=== PATIENT | male | born 1980 | race Caucasian/White ===

== ENCOUNTER 2024-09-07 13:29 | Outpatient (REF) | payer OTHER, SELFPAY ==
[2024-09-07 17:34] LABS: MANUAL DIFF FLAG NO
[2024-09-07 17:50] LABS: Basophils Percent Auto 0.8 % (0-2); Eosinophils Absolute Auto 0.2 X10*3/uL (0.0-0.4); Hematocrit 44.6 % (42.0-52.0); Hemoglobin 15.3 g/dl (14.0-18.0); Imm Gran Abs Auto 0.01 X10*3/uL (0.00-0.03); Imm Gran Pct Auto 0.2 % (0.0-0.4); Lymphocytes Absolute Auto 1.9 X10*3/uL (1.2-4.9); Lymphocytes Percent Auto 37.4 % (20-40); Mean Corpuscular HGB Conc 34.3 g/dl (31.0-36.0); Mean Corpuscular Hemoglobin 29.1 pg (27.0-33.0); Mean Platelet Volume 10.5 fL (9.4-12.4); Monocytes Absolute Auto 0.5 X10*3/uL (0.1-1.2); Monocytes Percent Auto 9.1 % (2-11); Neutrophils Absolute Auto 2.4 x10*3/uL (2.0-8.3); Neutrophils Percent Auto 48.5 % (45-73); Platelet Count 251 X10*3/uL (160-400); Red Blood Count 5.25 X10*6/uL (4.60-5.80); Red Cell Distribution Width 13.1 % (11.0-16.0); White Blood Count 4.9 X10*3/uL (4.8-10.8)
[2024-09-07 18:12] LABS: Albumin Level 4.9 g/dL (3.5-5.0); Alkaline Phosphatase 25 U/L (39-117); Anion Gap 12 (12-20); Aspartate Amino Transferase 34 U/L (5-37); Bilirubin Total 0.7 mg/dL (0.0-1.0); Blood Urea Nitrogen 17 mg/dL (9-16); Calcium 9.8 mg/dL (8.4-10.2); Carbon Dioxide 25 mmol/L (22-29); Chloride 108 mmol/L (96-108); Estimated Glomerular Filt Rate > 60; Glucose Random 85 mg/dL (60-115); Potassium 4.6 mmol/L (3.3-5.1); Sodium 140 mmol/L (135-145); Total Protein 7.5 g/dL (6.5-8.0)
[2024-09-07 18:30] LABS: TSH reflex Free T4 1.21 uIU/mL (0.32-4.0)
[2024-09-07 18:35] LABS: Alanine Aminotransferase 51 U/L (0-40)
[2024-09-09 11:04] LABS: LDL Cholesterol Direct 119 mg/dL (<100)
== END 2024-09-07 13:30 | disposition home or self-care (01) ==
LOC: HO.WFDLDS 13:29
PROVIDERS: PCP Internal Medicine; Visit Provider Internal Medicine
DX: F51.01 Primary insomnia (principal); F41.9 Anxiety disorder, unspecified; R09.89 Other specified symptoms and signs involving the circulatory and respiratory systems; Z13.0 Encounter for screening for diseases of the blood and blood-forming organs and certain disorders involving the immune mechanism; Z13.220 Encounter for screening for lipoid disorders; Z13.228 Encounter for screening for other metabolic disorders
CPT/HCPCS: 36415; 80053; 83721; 84443; 85025; 96127

== ENCOUNTER 2024-09-07 13:29 | Outpatient (AMB) | payer OTHER, SELFPAY ==
--- NOTE | 2024-09-07 13:48 | MHC.PC.OV ---
Vital Signs 09/07/24 13:52 Height 5 ft 6.54 in Weight 167 lb 4 oz BMI 26.6 BP 114/88 Blood Pressure Location Rt brachial Position Sitting Respiration 12 Pulse 78 Pulse Source Pulse Oximeter Temp 98.2 F Temp Source Oral Pulse Oximetry (%) 97 Oxygen Delivery Method Room Air Intake Visit Reasons: Est. Care Intake Note: New patient visit Time Study Observer Required: No Allergies sumatriptan Allergy (Unknown, Verified 09/07/24 13:51) Drowsy cold medicine Allergy (Unknown, Uncoded 09/07/24 13:51) Unknown Dental Screening Dental Screen Date: 09/07/24 Did you have a dental visit in the last 12 months?: Yes Did you have a dental problem in the last 6 months where you did not have access to dental care?: No Was dental information given to patient?: Patient has dentist HPI HPI Comments History of Present Illness Details The patient is a 44 year old male with past medical history of migraine, insomnia, family history of melanoma presenting to [facility]. Has not seen by pcp in a few years. Migraines/cluster-light and sound sensitivty, nausea. Lasts for a few hours, most of the time a majority of the day. Happens every 2-3 months. imitrex caused too much drowsiness. Improved by dark room rest. Dad just got diagnosed with melanoma. He has some moles on his back and would like dermatology referral Fiance worried about chronic anxiety. He is not bothered so much by this. 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 He is bothered by poor sleep. It takes him generally a few hours to sleep after which he generally sleeps fairly soundly. ROS see HPI PHYSICAL EXAM: GENERAL: Alert and oriented x 3. NAD EYES: EOMI. Anicteric. HENT: Moist mucous membranes. No scleral icterus. No cervical lymphadenopathy. LUNGS: Clear to auscultation bilaterally. CARDIOVASCULAR: Regular rate and rhythm. No murmur. No JVD. ABDOMEN: Soft, non-tender +bs EXTREMITIES: No edema. Non-tender. SKIN: No rashes or lesions. Warm. NEUROLOGIC: No focal neurological deficits. CN II-XII grossly intact PSYCHIATRIC: Cooperative. Appropriate mood and affect [facility] Social History Housing: House service: No Current occupational status: employed Current occupation: staff software engineer Current occupational exposures/hazards: Yes Cognitive needs: No Hearing needs: No Vision needs: Yes Questionnaire PHQ-9 Over the last 2 weeks, how often have you been bothered by any of the following problems? 1. Little interest or pleasure in doing things: several days 2. Feeling down, depressed, or hopeless: not at all 3. Trouble falling or staying asleep, or sleeping too much: nearly every day 4. Feeling tired or having little energy: several days 5. Poor appetite or overeating: not at all 6. Feeling bad about yourself - or that you are a failure or have let yourself or your family down: not at all 7. Trouble concentrating on things, such as reading the newspaper or watching television: not at all 8. Moving or speaking so slowly that other people could have noticed. Or the opposite - being so fidgety or restless that you have been moving around a lot more than usual: not at all 9. Thoughts that you would be better off or of hurting yourself in some way: not at all Total score: 5 Depression Screening Interpretation: Positive Depression Screening Follow-up: Declines treatment Depression Screening Done: Yes 50616 - PHQ-9 Billing: Yes Source: Developed by Drs. Jd Pearce, Taya Mejia, Kristopher Bob and colleagues, with an educational jay from [employer]. Thrive Questionnaire Date Thrive assessed: 09/01/24 I am a: Patient What is your living situation today?: I have a steady place to live Within the past 12 months, did the food you bought not last and you didn't have the money to get more?: Never true Within the past 12 months, did you worry whether your food would run out before you got money to buy more?: Never true Do you have trouble paying for medicines?: No Do you have trouble getting transportation to medical appointments?: No Do you have trouble paying your heating and electricity bill?: No Do you have trouble taking care of your child, family member or friend?: No Do you have trouble with day-to-day activities such as bathing, preparing meals, shopping, managing finances, etc.?: No Are you currently unemployed and looking for a job?: No Are you interested in more education?: No Please select the resources that you would like help with: None Currently or been in a relationship where the following occur: No concerns reported THRIVE Score: 0 AUDIT C Alcohol Use Questionnaire (AUDIT-C) 1. How often do you have a drink containing alcohol?: 2-4 times a month 2. How many drinks containing alcohol do you have on a typical day when you are drinking?: 1 or 2 3. How often do you have six or more drinks on one occasion?: Never Total Score: 2 SKY-7 AMB Questionnaire SKY-7 Feeling nervous, anxious, or on edge: 3 = Nearly every day Not being able to stop or control worryin = Nearly every day Worrying too much about different things: 3 = Nearly every day Trouble relaxin = Nearly every day Being so restless that it is hard to sit still: 0 = Not at all Becoming easily annoyed or irritable: 1 = Several days Feeling afraid as if something awful might happen: 3 = Nearly every day Total SKY-7 score (0-4 normal; 5-9 mild; 10-14 moderate; 15-21 severe): 16 Source: Developed by Drs. Jd Pearce, Taya Mejia, Kristopher Bob and colleagues, with an educational jay from [employer]. Physical exam (Primary Care) Vital Signs: Last Vital Signs Temp 98.2 F 09/07/24 13:52 Pulse 78 09/07/24 13:52 Resp 12 09/07/24 13:52 BP 114/88 09/07/24 13:52 Pulse Ox 97 09/07/24 13:52 Oxygen Delivery Method Room Air 09/07/24 13:52 BMI result Body Mass Index 26.6 PHQ-9: PHQ-9 Score PHQ-9: Total score 5 09/07/24 19:51 Depression Screening Interpretation: Positive Depression Screening Follow-up: Declines treatment Thrive Assessment: Date of Thrive Assessment Date Thrive assessed 09/01/24 09/07/24 13:55 Currently or been in a relationship where the following occur: No concerns reported Coding Level of Care Code New Pt Level 4 (48136) Complex EM visit Add On G2211 Diagnoses Primary insomnia F51.01 Insomnia type: primary Anxiety F41.9 Poor circulation R09.89 Additional Codes PHQ-9 - 54471 - PHQ-9 Billing: Yes ([id number]) Assessment & Plan Assessment & Plan (1) Insomnia: Code(s): G47.00 - Insomnia, unspecified Category: Medical Qualifiers: Insomnia type: primary Qualified Code(s): F51.01 - Primary insomnia (2) Anxiety: Code(s): F41.9 - Anxiety disorder, unspecified Category: Medical (3) Poor circulation: Code(s): R09.89 - Other specified symptoms and signs involving the circulatory and respiratory systems Category: Medical Plan 44 year old male to establish care past medical surgical social reviewed Insomnia-trial trazodone Labs ordered Orders: Orders TSH reflex Free T4 Today F41.9 - Anxiety disorder, unspecified, G47.00 - Insomnia, unspecified, R09.89 - Other specified symptoms and signs involving the circulatory and respiratory systems, Z13.0 - Encounter for screening for diseases of the blood and blood-forming organs and certain disorders involving the immune mechanism, Z13.220 - Encounter for screening for lipoid disorders, Z13.228 - Encounter for screening for other metabolic disorders Comprehensive Met. Panel Today F41.9 - Anxiety disorder, unspecified, G47.00 - Insomnia, unspecified, R09.89 - Other specified symptoms and signs involving the circulatory and respiratory systems, Z13.0 - Encounter for screening for diseases of the blood and blood-forming organs and certain disorders involving the immune mechanism, Z13.220 - Encounter for screening for lipoid disorders, Z13.228 - Encounter for screening for other metabolic disorders LDL Cholesterol Direct Today F41.9 - Anxiety disorder, unspecified, G47.00 - Insomnia, unspecified, R09.89 - Other specified symptoms and signs involving the circulatory and respiratory systems, Z13.0 - Encounter for screening for diseases of the blood and blood-forming organs and certain disorders involving the immune mechanism, Z13.220 - Encounter for screening for lipoid disorders, Z13.228 - Encounter for screening for other metabolic disorders Complete Blood Count Auto Diff Today F41.9 - Anxiety disorder, unspecified, G47.00 - Insomnia, unspecified, R09.89 - Other specified symptoms and signs involving the circulatory and respiratory systems, Z13.0 - Encounter for screening for diseases of the blood and blood-forming organs and certain disorders involving the immune mechanism, Z13.220 - Encounter for screening for lipoid disorders, Z13.228 - Encounter for screening for other metabolic disorders Referrals Dermatology Referral D22.9 - Melanocytic nevi, unspecified, Z80.8 - Family history of malignant neoplasm of other organs or systems Medications: New trazodone 50 mg PO BEDTIME PRN 90 tabs 3RF sleep
[2024-09-07 13:52] VITALS: BP 114/88; PULSE 78; RESP 12; TEMP 36.8; O2SAT 97; BMI 26.6
== END 2024-09-07 14:15 | disposition home or self-care (01) ==
LOC: HO.HMCFM 13:30
PROVIDERS: PCP Internal Medicine; Visit Provider Internal Medicine
DX: F51.01 Primary insomnia (principal); F41.9 Anxiety disorder, unspecified; R09.89 Other specified symptoms and signs involving the circulatory and respiratory systems